=== PATIENT | male | born 1975 | race Caucasian/White ===

== ENCOUNTER 2018-10-06 15:34 | Inpatient (IN) | payer OTHER ==
[2018-10-06 16:30] VITALS: BMI 24.5
--- NOTE | 2018-10-06 16:37 | HP ---
CIWA Score Nausea/Vomitin Muscle Tremors: 2 Anxiety: 2 Agitation: 2 Paroxysmal Sweats: 2 Orientation: 1-Uncertain about Date Tacttile Disturbances: 2-Mild Itch/Numbness/Burn Auditory Disturbances: 0-None Visual Disturbances: 0-None Headache: 0-None Present CIWA-Ar Total Score: 14 - Admission Criteria OASAS Guidelines: Admission for Medically Managed Detox: Requires at least one of the followin. CIWA greater than 12 2. Seizures within the past 24 hours 3. Delirium tremens within the past 24 hours 4. Hallucinations within the past 24 hours 5. Acute intervention needed for co occurring medical disorder 6. Acute intervention needed for co occurring psychiatric disorder 7. Severe withdrawal that cannot be handled at a lower level of care (continued vomiting, continued diarrhea, abnormal vital signs) requiring intravenous medication and/or fluids 8. Patient presents the following: CIWA greater than 12 Admission Criteria Met: Admission criteria met Admission ROS [facility] - [facility] Chief Complaint: "I'm here because I'm drinking too much so my friends came and brought me here, I need to be here because I'm drinking way too much" Allergies/Adverse Reactions: Allergies Allergy/AdvReac Type Severity Reaction Status Date / Time No Known Allergies Allergy Verified 10/06/18 16:47 History of Present Illness: 43 year old male with about 30 years of alcohol drinking presents for detox. He denies previous detox treatment or rehabilitation. Patient reports very rare use of xanax but not enough to require detox. Exam Limitations: No Limitations - Ebola screening Have you traveled outside of the country in the last 21 days: No Have you had contact with anyone from an Ebola affected area: No Have you been sick,other than usual withdrawal symptoms: No Do you have a fever: No - Review of Systems Constitutional: Chills, Loss of Appetite, Changes in sleep EENT: reports: No Symptoms Reported Respiratory: reports: No Symptoms reported Cardiac: reports: No Symptoms Reported GI: reports: No Symptoms Reported, Diarrhea, Nausea, Poor Appetite, Poor Fluid Intake, Vomiting, Abdominal cramping : reports: No Symptoms Reported Musculoskeletal: reports: Muscle Pain, Muscle Weakness Integumentary: reports: Sweating Neuro: reports: Tremors, Weakness Endocrine: reports: No Symptoms Reported Hematology: reports: Blood Clots (h/o, in RLE) Psychiatric: reports: Anxious, Depressed Other Systems: Reviewed and Negative Patient History - Patient Medical History Hx Anemia: No Hx Asthma: No Hx Chronic Obstructive Pulmonary Disease (COPD): No Hx Cancer: No Hx Cardiac Disorders: No Hx Congestive Heart Failure: No Hx Hypertension: No Hx Hypercholesterolemia: No Hx Pacemaker: No HX Cerebrovascular Accident: No Hx Seizures: No Hx Dementia: No Hx Diabetes: No Hx Gastrointestinal Disorders: No Hx Liver Disease: No Hx Genitourinary Disorders: No Hx Renal Disease (ESRD): No Hx Thyroid Disease: No Hx Human Immunodeficiency Virus (HIV): No Hx Hepatitis C: No Hx Depression: Yes Hx Suicide Attempt: No Hx Bipolar Disorder: No Hx Schizophrenia: No Other Medical History: DVT in right leg 2 years ago - Patient Surgical History Past Surgical History: No - PPD History Previous Implant?: No Implanted On Prior [facility] Admission?: No PPD to be Administered?: Yes - Reproductive History Patient is a Female of Child Bearing Age (11 -55 yrs old): No - Smoking Cessation Smoking history: Never smoked - Substance & Tx. History Hx Alcohol Use: Yes (beer and vodka) Hx Substance Use: No Substance Use Type: Alcohol - Substances Abused Alcohol Route: Oral Frequency: Daily Amount used: 10 -16 oz cans, 1 pint of vodka Age of first use: 16 Date of Last Use: 10/06/18 Alprazolam (Xanax) Route: Oral Frequency: 1-3 times last 30 days Amount used: 1- 2 tabs Age of first use: 29 Date of Last Use: 09/22/18 Family Disease History - Family Disease History Family Disease History: CA: Mother (), Brother () Admission Physical Exam S - Vital Signs Vital Signs: Vital Signs - 24 hr 10/06/18 16:28 Temperature 98.3 F Pulse Rate 103 H Respiratory 18 Rate Blood Pressure 139/88 - Physical General Appearance: Yes: No Apparent Distress, Alcohol on Breath HEENTM: Yes: Hearing grossly Normal, Normocephalic, Normal Voice, JOSÉ MIGUEL Respiratory: Yes: Chest Non-Tender, Lungs Clear, Normal Breath Sounds, No Respiratory Distress, No Accessory Muscle Use Neck: Yes: No masses,lesions,Nodules, Supple Breast: Yes: Breast Exam Deferred Cardiology: Yes: Regular Rhythm, Regular Rate, S1, S2 Abdominal: Yes: Normal Bowel Sounds, Non Tender, Soft Genitourinary: Yes: Within Normal Limits Back: Yes: Normal Inspection Musculoskeletal: Yes: full range of Motion, Gait Steady, Muscle Pain, Muscle weakness Extremities: Yes: Tremors, Coldness Neurological: Yes: director hair II-XII NML intact, Fully Oriented, Alert, Normal Response Integumentary: Yes: Normal Color, Clammy Lymphatic: Yes: Within Normal Limits - Diagnostic (1) Alcohol dependence with withdrawal, uncomplicated Current Visit: Yes Status: Acute (2) H/O deep venous thrombosis Current Visit: Yes Status: Resolved Cleared for Admission [facility] - Detox or Rehab [facility] Level of Care: Medically Managed Detox Regimen/Protocol: Librium [facility] Breath Alcohol Content Breath Alcohol Content: 0.315 Urine Drug Screen - Results Drug Screen Negative: No Urine Drug Screen Results: BZO-Benzodiazepines Inpatient Rehab Admission - Rehab Decision to Admit Inpatient rehab admission?: No
[2018-10-06] MEDS ORDERED: IBUPROFEN 400 MG TABLET (FP) PO PRN (17:00)
[2018-10-06] MEDS ORDERED: LOPERAMIDE HCL 2 MG CAPSULE PO PRN (17:00)
[2018-10-06] MEDS ORDERED: ACETAMINOPHEN 325 MG TABLET (FP) PO PRN (17:00)
[2018-10-06] MEDS ORDERED: MAG HYDROX/AL HYDROX/SIMETH 30 ML UNIT-DOSE CUP PO PRN (17:00)
[2018-10-06] MEDS ORDERED: MAGNESIUM HYDROX 2400MG/30ML ORAL SUSPENSION 30 ML CUP PO PRN (17:00)
[2018-10-06] MEDS ORDERED: chlordiazePOXIDE HCL 25 MG CAPSULE PO PRN (17:00)
[2018-10-06] MEDS ORDERED: P-EPHED 60MG/TRIPROLIDI 2.5MG TABLET PO PRN (17:00)
[2018-10-06] MEDS ORDERED: chlordiazePOXIDE HCL 25 MG CAPSULE PO ONE (17:00)
[2018-10-06] MEDS ORDERED: hydrOXYzine PAMOATE 50 MG CAPSULE (FP) PO PRN (17:00)
[2018-10-06] MEDS ORDERED: MENTHOL/PHENOL 1 EACH UD MM PRN (17:00)
[2018-10-06] MEDS ORDERED: MAGNESIUM CITRATE 300 ML BOTTLE PO PRN (17:00)
[2018-10-06] MEDS ORDERED: guaiFENesin/D-METHORPHAN HB 10 ML UNIT-DOSE CUPS PO PRN (17:00)
[2018-10-06] MEDS: chlordiazePOXIDE HCL 25 MG CAPSULE PO SCH (23:22)
[2018-10-06] MEDS: THIAMINE HCL 100 MG TABLET (FP) PO SCH (23:22)
[2018-10-07] MEDS: chlordiazePOXIDE HCL 25 MG CAPSULE PO SCH ×3 (06:05→18:35)
[2018-10-07] MEDS: PRENATAL VITAMINS W/ FOLIC ACID TABLET (FP) PO SCH (10:54)
[2018-10-07] MEDS: ASPIRIN COATED 81 MG TABLET.EC PO SCH (10:54)
[2018-10-07 10:55] LABS: ALBUMIN 3.4 g/dl (3.4-5.0); ALK PHOS 92 U/L (45-117); ANION GAP 8 MMOL/L (8-16); BILIRUBIN,TOTAL 1.2 mg/dL (0.2-1); BLOOD UREA NITROGEN 8 mg/dL (7-18); CALCIUM 8.3 mg/dL (8.5-10.1); CHLORIDE 96 mmol/L (98-107); CO2 32 mmol/L (21-32); CREATININE 0.8 mg/dL (0.55-1.3); GLUCOSE,RANDOM 81 mg/dL (74-106); POTASSIUM 3.2 mmol/L (3.5-5.1); SGOT/AST 98 U/L (15-37); SGPT/ALT 58 U/L (13-61); SODIUM 136 mmol/L (136-145); TOT PROT 7.8 g/dl (6.4-8.2)
[2018-10-07 10:58] LABS: HEMATOCRIT 38.7 % (35.4-49); HEMOGLOBIN 13.7 GM/dL (11.7-16.9); MCHC 35.3 g/dl (32.0-35.9); MEAN CELL VOLUME 113.1 fl (80-96); MEAN PLT VOLUME 10.5 fl (7.5-11.1); PLATELET COUNT 73 K/MM3 (134-434); RBC 3.42 M/mm3 (4.00-5.60); RDW 15.4 % (11.9-15.9); WHITE BLOOD COUNT 3.6 K/mm3 (4.0-10.0)
--- NOTE | 2018-10-07 16:02 | PN ---
[facility] CIWA - CIWA Score Nausea/Vomitin Muscle Tremors: 4-Moderate,w/Arms Extend Anxiety: 4-Mod. Anxious/Guarded Agitation: 4-Moderately Restless Paroxysmal Sweats: 3 Orientation: 0-Oriented Tacttile Disturbances: 0-None Auditory Disturbances: 0-None Visual Disturbances: 0-None Headache: 0-None Present CIWA-Ar Total Score: 17 [facility] Progress Note (SOAP) Subjective: Feeling tired, sweating, chills, tremor, diarrhea x 1, interrupted sleep Objective: 10/07/18 15:57 Last Vital Signs Temp Pulse Resp BP Pulse Ox 96.6 F L 87 18 125/83 10/07/18 13:25 10/07/18 14:30 10/07/18 14:30 10/07/18 13:25 Laboratory Tests 10/07/18 10/07/18 10/07/18 07:50 07:50 07:50 WBC 3.6 L RBC 3.42 L Hgb 13.7 Hct 38.7 MCV 113.1 H MCH 40.0 H MCHC 35.3 RDW 15.4 Plt Count 73 L MPV 10.5 Platelet Comment No clotting detected Sodium 136 Potassium 3.2 L Chloride 96 L Carbon Dioxide 32 Anion Gap 8 BUN 8 Creatinine 0.8 Creat Clearance w eGFR > 60 Random Glucose 81 Calcium 8.3 L Total Bilirubin 1.2 H AST 98 H ALT 58 Alkaline Phosphatase 92 Total Protein 7.8 Albumin 3.4 RPR Titer Nonreactive Labs reviewed: K 3.2, plt 73 Assessment: 10/07/18 15:59 Withdrawal symptoms Noted with hypokalemia and thrombocytopenia Plan: Continue detox Encouraged PO water hydration Hypokalemia: asymptomatic, KDUR 40meq PO x 2 doses, repeat serum K level in AM Thrombocytopenia: asymptomatic, could be r/t alcoholism, follow up with PCP for monitoring
[2018-10-07] MEDS ORDERED: POTASSIUM CHLORIDE TABS 20 MEQ TABLET.ER (FP) PO ONE ×2 (16:03→21:00)
--- NOTE | 2018-10-07 22:15 | EKG ---
Test Reason : Blood Pressure : / mmHG Vent. Rate : 086 BPM Atrial Rate : 086 BPM P-R Int : 144 ms QRS Dur : 094 ms QT Int : 400 ms P-R-T Axes : 050 025 056 degrees QTc Int : 478 ms NORMAL SINUS RHYTHM NORMAL ECG NO PREVIOUS ECGS AVAILABLE Confirmed by ANETTE QUEEN MD ([id number]) on 10/07/2018 10:14:30 PM Referred By: KWASI STARK Confirmed By:ANETTE QUEEN MD
[2018-10-08] MEDS: THIAMINE HCL 100 MG TABLET (FP) PO SCH ×2 (00:15→22:16)
[2018-10-08] MEDS: chlordiazePOXIDE HCL 25 MG CAPSULE PO SCH ×4 (00:16→17:24)
--- NOTE | 2018-10-08 09:24 | CONSULT ---
[facility] Psych[facility] Consult - Data Date of interview: 10/08/18
[2018-10-08] MEDS: PRENATAL VITAMINS W/ FOLIC ACID TABLET (FP) PO SCH (10:58)
[2018-10-08] MEDS: ASPIRIN COATED 81 MG TABLET.EC PO SCH (10:58)
[2018-10-08] MEDS ORDERED: diphenhydrAMINE HCL 50 MG CAPSULE PO PRN (12:18)
--- NOTE | 2018-10-08 13:22 | PN ---
[facility] CIWA - CIWA Score Nausea/Vomitin-No Nausea/No Vomiting Muscle Tremors: 3 Anxiety: 3 Agitation: 2 Paroxysmal Sweats: 3 Orientation: 0-Oriented Tacttile Disturbances: 0-None Auditory Disturbances: 0-None Visual Disturbances: 0-None Headache: 0-None Present CIWA-Ar Total Score: 11 [facility] Progress Note (SOAP) Subjective: SHAKES SWEATS Objective: 10/08/18 13:05 A & O X 3 IN BED SKIN FLUSHED NO DISTRESS NOTED Laboratory Last Values WBC 3.6 K/mm3 (4.0-10.0) L 10/07/18 07:50 RBC 3.42 M/mm3 (4.00-5.60) L 10/07/18 07:50 Hgb 13.7 GM/dL (11.7-16.9) 10/07/18 07:50 Hct 38.7 % (35.4-49) 10/07/18 07:50 MCV 113.1 fl (80-96) H 10/07/18 07:50 MCH 40.0 pg (25.7-33.7) H 10/07/18 07:50 MCHC 35.3 g/dl (32.0-35.9) 10/07/18 07:50 RDW 15.4 % (11.9-15.9) 10/07/18 07:50 Plt Count 73 K/MM3 (134-434) L 10/07/18 07:50 MPV 10.5 fl (7.5-11.1) 10/07/18 07:50 Platelet Comment No clotting detected 10/07/18 07:50 Sodium 136 mmol/L (136-145) 10/07/18 07:50 Potassium 2.8 mmol/L (3.5-5.1) L* 10/08/18 07:40 Chloride 96 mmol/L (98-107) L 10/07/18 07:50 Carbon Dioxide 32 mmol/L (21-32) 10/07/18 07:50 Anion Gap 8 MMOL/L (8-16) 10/07/18 07:50 BUN 8 mg/dL (7-18) 10/07/18 07:50 Creatinine 0.8 mg/dL (0.55-1.3) 10/07/18 07:50 Creat Clearance w eGFR > 60 (>60) 10/07/18 07:50 Random Glucose 81 mg/dL (74-106) 10/07/18 07:50 Calcium 8.3 mg/dL (8.5-10.1) L 10/07/18 07:50 Total Bilirubin 1.2 mg/dL (0.2-1) H 10/07/18 07:50 AST 98 U/L (15-37) H 10/07/18 07:50 ALT 58 U/L (13-61) 10/07/18 07:50 Alkaline Phosphatase 92 U/L (45-117) 10/07/18 07:50 Total Protein 7.8 g/dl (6.4-8.2) 10/07/18 07:50 Albumin 3.4 g/dl (3.4-5.0) 10/07/18 07:50 RPR Titer Nonreactive (NONREACTIVE) 10/07/18 07:50 REPEAT LAB RESULTS NOTED; PLATELETS LOW - DENIES ANY SOB/CHEST DISCOMFORT/COMPLAINTS POTASSIUM LOW 0 Assessment: 10/08/18 13:24 WITHDRAWAL SX THROMBOCYTOPENIA HYPOKALEMIA Plan: CONTINUE DETOX CONTINUE K+ SUPPLEMENTS REPEAT PLASMA K LEVELS TOMORROW EDUCATED ON NEED TO F/U W/PMD RE-THROMBOCYTOPENIA ON DISCHARGE AND VERBALIZED UNDERSTANDING CONTINUE TO MONITOR FOR SYMPTOMS OF BLOOD CLOTS
[2018-10-08] MEDS: POTASSIUM CHLORIDE ORAL LIQUID 20 MEQ/15 ML PO SCH ×2 (15:00→22:16)
[2018-10-08] MEDS: chlordiazePOXIDE 5 MG CAPSULE PO SCH (22:16)
[2018-10-08] MEDS: MELATONIN 5 MG TABLETS PO PRN (22:18)
[2018-10-09] MEDS: chlordiazePOXIDE 5 MG CAPSULE PO SCH ×3 (06:24→17:34)
[2018-10-09] MEDS: ASPIRIN COATED 81 MG TABLET.EC PO SCH (10:56)
[2018-10-09] MEDS: PRENATAL VITAMINS W/ FOLIC ACID TABLET (FP) PO SCH (10:56)
[2018-10-09] MEDS: POTASSIUM CHLORIDE ORAL LIQUID 20 MEQ/15 ML PO SCH ×2 (11:26→22:10)
--- NOTE | 2018-10-09 13:04 | PN ---
S Progress Note (SOAP) Subjective: Patient denies current Withdrawal / Detox symptoms and reports that he feels well overall. Objective: PATIENT A & O X 3. IN NO ACUTE DISTRESS. 10/09/18 13:02 Vital Signs Temperature 98.1 F 10/09/18 09:56 Pulse Rate 62 10/09/18 09:56 Respiratory Rate 18 10/09/18 09:56 Blood Pressure 102/61 10/09/18 09:56 O2 Sat by Pulse Oximetry (%) Laboratory Tests 10/07/18 10/07/18 10/07/18 07:50 07:50 07:50 WBC 3.6 L RBC 3.42 L Hgb 13.7 Hct 38.7 MCV 113.1 H MCH 40.0 H MCHC 35.3 RDW 15.4 Plt Count 73 L MPV 10.5 Platelet Comment No clotting detected Sodium 136 Potassium 3.2 L Chloride 96 L Carbon Dioxide 32 Anion Gap 8 BUN 8 Creatinine 0.8 Creat Clearance w eGFR > 60 Random Glucose 81 Calcium 8.3 L Total Bilirubin 1.2 H AST 98 H ALT 58 Alkaline Phosphatase 92 Total Protein 7.8 Albumin 3.4 RPR Titer Nonreactive 10/08/18 10/09/18 07:40 07:00 WBC RBC Hgb Hct MCV MCH MCHC RDW Plt Count MPV Platelet Comment Sodium Potassium 2.8 L* 3.7 Chloride Carbon Dioxide Anion Gap BUN Creatinine Creat Clearance w eGFR Random Glucose Calcium Total Bilirubin AST ALT Alkaline Phosphatase Total Protein Albumin RPR Titer LABS NOTED. RESULT OF REPEAT POTASSIUM LEVEL FROM EARLIER TODAY NOTED: POTASSIUM LEVEL NOW NOTED TO BE WITHIN NORMAL RANGE. 10/09/18 13:05 Assessment: 10/09/18 13:02 WITHDRAWAL SYMPTOMS. LEUKOPENIA. ANEMIA. THROMBOCYTOPENIA. 10/09/18 13:04 Plan: CONTINUE DETOX. PATIENT SCHEDULED FOR D/C TOMORROW.
[2018-10-09] MEDS: MELATONIN 5 MG TABLETS PO PRN (22:11)
[2018-10-09] MEDS: THIAMINE HCL 100 MG TABLET (FP) PO SCH (22:11)
[2018-10-09] MEDS: chlordiazePOXIDE HCL 10 MG CAPSULE PO SCH (22:11)
[2018-10-10] MEDS: chlordiazePOXIDE HCL 10 MG CAPSULE PO SCH ×2 (06:09→10:37)
[2018-10-10 09:21] VITALS: BP 130/85; PULSE 72; TEMP 97.9
[2018-10-10] MEDS: PRENATAL VITAMINS W/ FOLIC ACID TABLET (FP) PO SCH (10:37)
[2018-10-10] MEDS: POTASSIUM CHLORIDE ORAL LIQUID 20 MEQ/15 ML PO SCH (10:37)
[2018-10-10] MEDS: ASPIRIN COATED 81 MG TABLET.EC PO SCH (10:37)
--- NOTE | 2018-10-10 20:17 | DS ---
[facility] Detox Discharge Summary Admission Date: 10/06/18 Discharge Date: 10/10/18 - History Present History: Alcohol Dependence Additional Comments: PATIENT GOING TO [facility] ([place], [place]) FOR AFTERCARE. PATIENT WAS DISCHARGED FROM DETOX UNIT IN STABLE MEDICAL CONDITION. Pertinent Past History: History of DVT (Right Leg). - Physical Exam Results Vital Signs: Vital Signs Temperature 97.9 F 10/10/18 09:21 Pulse Rate 72 10/10/18 09:21 Respiratory Rate 18 10/10/18 09:21 Blood Pressure 130/85 10/10/18 09:21 O2 Sat by Pulse Oximetry (%) Pertinent Admission Physical Exam Findings: WITHDRAWAL SYMPTOMS. Laboratory Tests 10/07/18 10/07/18 10/07/18 07:50 07:50 07:50 WBC 3.6 L RBC 3.42 L Hgb 13.7 Hct 38.7 MCV 113.1 H MCH 40.0 H MCHC 35.3 RDW 15.4 Plt Count 73 L MPV 10.5 Platelet Comment No clotting detected Sodium 136 Potassium 3.2 L Chloride 96 L Carbon Dioxide 32 Anion Gap 8 BUN 8 Creatinine 0.8 Creat Clearance w eGFR > 60 Random Glucose 81 Calcium 8.3 L Total Bilirubin 1.2 H AST 98 H ALT 58 Alkaline Phosphatase 92 Total Protein 7.8 Albumin 3.4 RPR Titer Nonreactive 10/08/18 10/09/18 07:40 07:00 WBC RBC Hgb Hct MCV MCH MCHC RDW Plt Count MPV Platelet Comment Sodium Potassium 2.8 L* 3.7 Chloride Carbon Dioxide Anion Gap BUN Creatinine Creat Clearance w eGFR Random Glucose Calcium Total Bilirubin AST ALT Alkaline Phosphatase Total Protein Albumin RPR Titer LABS NOTED. - Treatment Hospital Course: Detox Protocol Followed, Detoxed Safely, Responded well, Discharged Condition Good, Rehab Referral Accepted Patient has Accepted a Rehab Referral to: [facility] ([place], [place]). - Medication Discharge Medications: Ambulatory Orders NK [No Known Home Medication] 10/06/18 - Diagnosis (1) Alcohol dependence with withdrawal, uncomplicated Status: Acute (2) H/O deep venous thrombosis Status: Resolved - AMA Did Patient Leave Against Medical Advice: No
== END 2018-10-10 10:41 | disposition home or self-care (01) | DRG 775 ==
LOC: YASAS 15:34 → Y6N 17:46
PROVIDERS: ADMIT Surgery; ATTEND Surgery
PROC: HZ2ZZZZ Detoxification Services for Substance Abuse Treatment (ICD-10-PCS; principal; 2018-10-06)
DX: F10.230 Alcohol dependence with withdrawal, uncomplicated (principal); F32.9 Major depressive disorder, single episode, unspecified; E87.6 Hypokalemia; D64.9 Anemia, unspecified; D69.6 Thrombocytopenia, unspecified; D72.819 Decreased white blood cell count, unspecified; Z86.718 Personal history of other venous thrombosis and embolism
CPT/HCPCS: 36415; 80053; 84132; 85027; 86593; 93005; 93010